=== PATIENT | female | born 1955 | race Caucasian/White ===

== ENCOUNTER → 2024-10-05 11:36 | Outpatient (BNV) | payer MEDICARE, SELFPAY | PROVIDERS: Visit Provider Radiology Diagnostic Radiology | DX: M47.812 Spondylosis without myelopathy or radiculopathy, cervical region (principal); M99.61 Osseous and subluxation stenosis of intervertebral foramina of cervical region; M43.12 Spondylolisthesis, cervical region; M50.321 Other cervical disc degeneration at C4-C5 level | CPT/HCPCS: 72156 ==

== ENCOUNTER 2024-10-05 12:49 | Outpatient (REF) | payer MEDICARE, SELFPAY ==
--- NOTE | ~2024-10-05 | MR_ITS ---
EXAMINATION: MR CERVICAL SPINE WITHOUT AND WITH CONTRAST CLINICAL INFORMATION: History of meningioma, weakness, numbness, paraparesis, ataxia. 69-year-old female. COMPARISON: None TECHNIQUE: Multiplanar multisequence MR imaging of the cervical spine was done prior to and after the administration 5.5 mL IV Gadavist. Examination was performed on a 1.5 Maday Siemens unit, using standard sequences. FINDINGS: CORONAL ALIGNMENT: -Mild levoconvex scoliosis, apex at C5. SAGITTAL ALIGNMENT: -Straightening of the upper cervical lordosis, with exaggeration of the lower cervical lordosis, apex at C6-7. -There is a 4 mm degenerative appearing anterolisthesis of C7 on T1. -Sagittal alignment is otherwise anatomic. CRANIOCERVICAL JUNCTION/C1-2 ARTICULATIONS: -Intact and aligned. VERTEBRAL BODIES/BONE MARROW: -No compression deformities. -No abnormal infiltrating bone marrow signal. -Severe edematous endplate changes and enhancement at C4-5. -Fatty type endplate changes are present at C6-7. DISCS: -Severe loss of disc height and signal is present C4-5, C5-6, C6-7, and C7-T1. -There is otherwise moderate loss of disc signal. CERVICAL CORD: -There is cord impingement at C4-5 as discussed below. There is notable increased cord T2 signal spanning the mid C4 to the mid C5 level. -There is subtle central increased cord signal extending from the C4-5 disc level, cephalad to the mid C2 level. -There is no abnormal cord or intramedullary or extra medullary enhancement. -There is no intra or extra medullary mass. PARAVERTEBRAL SOFT TISSUES: -Normal. No edema or enhancement identified. -The thyroid gland is obscured by a saturation band. VISUALIZED INTRACRANIAL STRUCTURES: -Within normal limits. -Mild linear enhancement abutting the dorsum sella and superior dorsal clivus is present, most likely a prominent greater petrosal sinus. En plaque type meningioma cannot be excluded. Correlate with old imaging. AXIAL DISC SPACE IMAGING: C2-C3: No disc pathology. Moderate left hypertrophic facet changes and bilateral uncinate spurs contribute to moderate to severe left neural foraminal stenosis. There is no central canal stenosis. C3-C4: There is a left lateral disc osteophytic protrusion, moderately narrowing the left lateral recess. There is mild central canal narrowing. Moderate left greater than right hypertrophic facet changes present, with moderate bilateral hypertrophic uncinate changes. The findings are contributing to severe bilateral neural foraminal encroachment. C4-C5: Diffuse dorsal disc osteophytic ridge complex is present, contiguous with prominent bilateral uncinate spurs. Moderate bilateral facet hypertrophic arthropathy. Posterior ligamentous thickening/infolding. There is severe central canal stenosis with cord impingement and signal abnormality. The central canal has been reduced to 6 mm in AP diameter (series 9, image 12). There is severe bilateral neural foraminal encroachment. C5-C6: There is a shallow diffuse disc osteophytic ridge complex, contiguous with prominent bilateral uncinate spurs. Moderate bilateral hypertrophic facet arthropathy. There is mild posterior ligamentous thickening/infolding. There is mild central canal stenosis without cord impingement. There is severe right greater than left neural foraminal encroachment. C6-C7: There is a shallow disc osteophytic ridge complex, contiguous with bilateral uncinate spurring. Mild bilateral facet hypertrophic arthropathy. Minimal posterior ligamentous thickening/infolding. There is mild central canal stenosis, mild left lateral recess stenosis, and severe bilateral neural foraminal impingement. C7-T1: Disc uncovering secondary to anterolisthesis. Moderate to severe disc degeneration. Mild to moderate bilateral uncinate and facet spurring present. There is mild central canal stenosis. There is severe bilateral neural foraminal impingement. MR/MR cervical spine wo/w con IMPRESSION: 1. Advanced cervical spondylosis. There is severe central canal stenosis with cord impingement at C5-6 with increased central cord signal at this level. See above for details. 2. Multilevel neural foraminal impingement, severe at C3-4 through C7-T1. 3. Severe edematous and enhancing endplate changes at C4-5. 4. No abnormal cord or extra medullary enhancement. 5. There is a 4 mm degenerative type anterolisthesis of C7 on T1. Electronically signed by: Ameya Gutierrez MD 10/05/2024 12:51 PM EDT
--- NOTE | ~2024-10-05 | XR_ITS ---
EXAMINATION: X-ray pre-MRI screening. CLINICAL INFORMATION: Concerning metallic foreign body. TECHNIQUE: AP and lateral views of the skull. COMPARISON: None FINDINGS: No metallic foreign body within the orbits or within the cranium. Poor pneumatization of the left frontal sinus. No gross Paranasal sinuses bony calvarium is intact. XR/XR pre mri screening IMPRESSION: No metallic foreign body. Negative exam. Electronically signed by: Trey Patten MD 10/05/2024 10:33 AM EDT
[2024-10-05] MEDS: gadobutroL 7.5 ML VIAL IVPUSH (12:14)
--- OUTSIDE RECORDS SUMMARY | 2024-10-05 12:51 | XMS_ITS | Data Portability ---
Author Organization [facility], [facility] Address [address] [place] [address] Care Team Providers Care Lump Roller Name Role Phone ZEE DAVIS Primary Care Provider [phone] CHRISTI GUERRIER Neurologist Assessment Encounter Date Assessment Date Assessment LastModified by Organization Details LastModified Time 12/19/2023 12/19/2023 We completed your Medicare Wellness exam today. This was an opportunity to assess your overall well being including your ability to care for yourself, your mobility, memory, mental health, as well as your safety. With advancing age, it is important to assign someone in your life as your Health Care Proxy (HCP). This person should know what is important to you and what your wishes are for medical procedures if you cannot communicate your wishes yourself (severe illness, unconsciousness) . We discussed having a completed Health Care Proxy form today. In addition, today we started a conversation about your End of Life wishes. These conversations will continue over the years. Please consider reading the book, Being Mortal by Renzo Llanos to help frame future conversations. We discussed the purpose of a MOLST form (Medical Orders for Life Sustaining Treatment) and completed this form if appropriate per your wishes. Vision and Hearing are senses that are critically important as we age. When impaired, they can contribute to memory loss, falls, and make it harder to drive, talk to family and friends, and engage in the world. Please get your vision checked yearly and your hearing checked when you start to notice hearing loss. We discussed approaches to lowering your risk of heart disease and stroke . Your blood pressure is higher than goal consider losing weight and lowering your salt intake. Your cholesterol is at goal. We discussed cancer screening you may need as well as vaccines to prevent infections. Colon Cancer : Your risk of colon cancer is . Due for colorectal screenin. If you are not planning to have a colonoscopy please screen with stool cards yearly. Breast Cancer : Breast Cancer Screening (mammography). Next mammogram due: 2024. Cervical Cancer Screening (pap test). Next pap due: not needed. . Influenza Vaccine : Flu shot yearly. Tetanus Vaccine : Every 10 years. Due: 2028. The following vaccines are available from your pharmacy: Pneumonia Vaccine : PCV20: once after age 65. Shingles Vaccine : 2 shots after age 50. Covid Vaccine : Make sure you have received the most up to date covid vaccine. Your personal health goal for the year is: [email or web address] Not available 12/19/2023 10:36:24 Plan of Treatment Reminders Order Date Submit Date Provider Last Modified By Organization Details Last Modified Time Details Appointments Follow Up, 2024 09:30A Jethro Davis NP Not available Not available Not available LAB Follow-Up 2024 08:10A M [facility] Lab Not available Not available Not available Wellness Visit 2024 09:45A M Zee Davis JUNIOR PHP DEVELOPER Not available Not available Not available Lab vitamin B12, serum 2024 025 [facility], [address] [place] [address], [id number], 09/03/2024 14:11:49 TSH, serum or plasma 2024 025 [facility], [address] [place] [address], [id number], 08/30/2024 15:20:50 folate, serum 2024 025 [facility], [address] [place] [address], [id number], 09/03/2024 14:11:50 CBC 2024 025 [facility], [address] [place] [address], [id number], 08/30/2024 12:44:50 BMP, serum or plasma 2024 025 [facility], [address] [place] [address], [address], 08/30/2024 14:18:37 HbA1c (hemoglob in A1c), blood 2024 025 [facility], [address] [place] [address], [address], 08/30/2024 14:27:07 fecal occult blood, immunoass ay, stool - Lab- Create annual order through [id number] order set. 2023 024 [facility], [address] [place] [address], [id number], 02/22/2024 11:05:42 fecal occult blood, immunoass ay, stool 2022 023 [facility], [address] [place] [address], [id number], 06/17/2022 10:54:49 Referral None recorded. Procedures nerve conductio n study/EMG , upper extremity (PROC) - bilateral u/e 2024 025 DELBERT Guerrier MD, [address] [place] [address], [address], 10/05/2024 11:07:38 Surgeries None recorded. Imaging MRI, brain, w/wo contrast - hoping for [place] location for MRI; previous brain tumor , now new neurologi jm symptoms. 2024 025 [facility] ([facility] [address] [place], [address], 10/01/2024 15:58:01 XR, cervical spine 2024 025 [facility] (Imaging), [address], [place], [address], 08/30/2024 10:36:43 MAMMO, screening , tomosynth esis, bilateral 2022 023 [facility] ([facility]), [address], [place], [address], 12/01/2022 09:19:14 Medication Orders None recorded. Patient TargetsNo targets recorded. Patient Instructions Encounter Date Encounter Id Patient Instructions Last Modified By Organization Details Last Modified Time 06/09/2022 [id number] CCM: The provide r and patient discussed the Chronic Care Management program, including the services provided, and any fees associated with them. [email or web address] Not available 06/09/2022 12:01:44 12/01/2022 [id number] advance directives: care instructions tfurcolo Not available 12/02/2022 08:32:25 preventing falls : care instructions tfurcolo Not available 12/02/2022 08:32:25 hearing loss: care instructions tfurcolo Not available 12/02/2022 08:32:25 well visit, over 65: care instructions tfurcolo Not available 12/02/2022 08:32:25 slightly elevate d BP today- with dysautonomia- no not recommend any BP meds- for risk of hypotension/fall tfurcolo Not available 12/02/2022 08:34:46 12/19/2023 [id number] CCM: The provide r and patient discussed the Chronic Care Management program, including the services provided, and any fees associated with them. [email or web address] Not available 12/19/2023 09:50:38 Reason for Referral None Reported. Results Created Date Observation Date Name Description Value Unit Range Abnormal Flag Note LastModifiedBy Organization Detail LastModifiedTime 06/15/1906/17/2022 IMMUN OCHEM ICAL FECAL OCCUL T BLOOD ifobt NEGATI VE negati ve Not Available [address], [address], 06/17/2022 10:54:49 02/21/20 24 02/22/2024 IMMUN OCHEM ICAL FECAL OCCUL T BLOOD ifobt NEGATI VE negati ve Not Available [address], [address], 02/22/2024 11:05:42 08/31/19 25 08/30/2024 CBC WBC 7.57 K/? ? ?L 3.98-1 0.04 Not Available [address], [address], 08/30/2024 12:44:50 08/31/19 25 08/30/2024 CBC RBC 4.49 M/? ? ?L 3.93-5 .22 Not Available [address], [address], 08/30/2024 12:44:50 08/31/19 25 08/30/2024 CBC HGB 13.8 g/dL 11.2-1 5.7 Not Available [address], [address], 08/30/2024 12:44:50 08/31/19 25 08/30/2024 CBC HCT 39.8 % 34.1-4 4.9 Not Available [address], [address], 08/30/2024 12:44:50 08/31/19 25 08/30/2024 CBC MCV 88.6 fL 79.4-9 4.8 Not Available [address], [address], 08/30/2024 12:44:50 08/31/19 25 08/30/2024 CBC MCH 30.7 pg 25.6-3 2.2 Not Available [address], [address], 08/30/2024 12:44:50 08/31/19 25 08/30/2024 CBC MCHC 34.7 g/dL 32.2-3 5.5 Not Available [address], [address], 08/30/2024 12:44:50 08/31/19 25 08/30/2024 CBC plt 430 K/? ? ?L 182-36 9 high Not Available [address], [address], 08/30/2024 12:44:50 08/31/19 25 08/30/2024 CBC MPV 9.7 fL 9.4-12 .3 Not Available [address], [address], 08/30/2024 12:44:50 08/31/19 25 08/30/2024 CBC neut% 66.5 % 34.0-7 1.1 Not Available [address], [address], 08/30/2024 12:44:50 08/31/19 25 08/30/2024 CBC neut# 5.04 1.56-6 .13 Not Available [address], [address], 08/30/2024 12:44:50 08/31/19 25 08/30/2024 CBC lymph % 24.2 % 19.3-5 1.7 Not Available [address], [address], 08/30/2024 12:44:50 08/31/19 25 08/30/2024 CBC lymph # 1.83 K/? ? ?L 1.18-3 .74 Not Available [address], [address], 08/30/2024 12:44:50 08/31/19 25 08/30/2024 CBC mono% 7.3 % 4.7-12 .5 Not Available [address], [address], 08/30/2024 12:44:50 08/31/19 25 08/30/2024 CBC mono# 0.55 0.24-0 .56 Not Available [address], [address], 08/30/2024 12:44:50 08/31/19 25 08/30/2024 CBC eo% 0.8 % 0.7-5. 8 Not Available [address], [address], 08/30/2024 12:44:50 08/31/19 25 08/30/2024 CBC eo# 0.06 0.04-0 .36 Not Available [address], [address], 08/30/2024 12:44:50 08/31/19 25 08/30/2024 CBC baso% 0.9 % 0.1-1. 2 Not Available [address], [address], 08/30/2024 12:44:50 08/31/19 25 08/30/2024 CBC baso# 0.07 0.00-0 .08 Not Available [address], [address], 08/30/2024 12:44:50 08/31/19 25 08/30/2024 CBC RDW-CV 13.1 % 11.7-1 4.4 Not Available [address], [address], 08/30/2024 12:44:50 08/31/19 25 08/30/2024 CBC Ig% 0.300 % 0.000- 1.500 Ig % >0.5 Indic ates possi ble Left Shift Not Available [address], [address], 08/30/2024 12:44:50 08/31/19 25 08/30/2024 CBC Ig# 0.020 0.000- 0.093 Not Available [address], [address], 08/30/2024 12:44:50 08/31/19 25 08/30/2024 CBC NRBC% 0.0 % 0.0-0. 2 Not Available [address], [address], 08/30/2024 12:44:50 08/31/19 25 08/30/2024 CBC NRBC# 0.000 0.000- 0.012 Not Available [address], [address], 08/30/2024 12:44:50 08/31/19 25 08/30/2024 BASIC METAB OLIC PANEL glucose 125 mg/dL 70-100 high Not Available [address], [address], 08/30/2024 14:18:37 08/31/19 25 08/30/2024 BASIC METAB OLIC PANEL BUN 18 mg/dL 7-18 Not Available [address], [address], 08/30/2024 14:18:37 08/31/19 25 08/30/2024 BASIC METAB OLIC PANEL creatinine 0.9 mg/dL 0.8-1. 3 Not Available [address], [address], 08/30/2024 14:18:37 08/31/19 25 08/30/2024 BASIC METAB OLIC PANEL B/C 20.0 ratio Not Available [address], [address], 08/30/2024 14:18:37 08/31/19 25 08/30/2024 BASIC METAB OLIC PANEL GFR >=60ML /MIN mL/mi n normal >=60m L/min - Kia l or midly reduc ed <60mL /min- Decre ased kidne y funct ion <15mL /min - Kidne y failu re [facility] calcu lates estim ated Glome rular Filtr ation Rate (eGFR ) using the Chron ic Kidne y Disea se Epide miolo gy Colla borat ion (CKD- EPI) Equat ion (Clayton r et. al 2020) as recom stefania d by the Natio nal Kidne y Found ation . eGFR is based on age, serum creat inine , and sex. CKD-E PI does not calcu late eGFR by race, does not apply to child susana (age <18 years ), and shoul d not be used in pregn lennie. Not Available [address], [address], 08/30/2024 14:18:37 08/31/19 25 08/30/2024 BASIC METAB OLIC PANEL sodium 142 mmol/ L 136-14 5 Not Available [address], [address], 08/30/2024 14:18:37 08/31/19 25 08/30/2024 BASIC METAB OLIC PANEL potassium 5.3 mmol/ L 3.5-5. 1 high Not Available [address], [address], 08/30/2024 14:18:37 08/31/19 25 08/30/2024 BASIC METAB OLIC PANEL chloride 103 mmol/ L 96-107 Not Available [address], [address], 08/30/2024 14:18:37 08/31/19 25 08/30/2024 BASIC METAB OLIC PANEL anion gap 9.9 5.0-15 .0 Not Available [address], [address], 08/30/2024 14:18:37 08/31/19 25 08/30/2024 BASIC METAB OLIC PANEL CO2 29 mmol/ L 21-32 Not Available [address], [address], 08/30/2024 14:18:37 08/31/19 25 08/30/2024 BASIC METAB OLIC PANEL calcium 10.1 mg/dL 8.5-10 .3 Not Available [address], [address], 08/30/2024 14:18:37 08/31/19 25 08/30/2024 HGB A1C hemoglobin A1C 5.7 % 4.8-6. 0 Goal: <7% in Patie nts with Diabe tremaine An A1c betwe en 5.7-6 .4% is ident ified as pre-d iabet es and sugge sts risk for progr essio n to diabe tremaine Two a1c value s of 6.5% or highe r is consi stent with a diagn osis of diabe tremaine but may need furth er confi rmati on Not Available [address], [address], 08/30/2024 14:27:07 08/31/19 25 08/30/2024 HGB A1C estimated average glucose 116.9 mg/dL Not Available [address], [address], 08/30/2024 14:27:07 08/31/19 25 08/30/2024 LIPID PANEL cholesterol 255 mg/dL <200 mg/dl Jenny able 200-2 39 mg/dl Borde rline High >240 mg/dl High Not Available [address], [address], 08/30/2024 14:35:55 08/31/19 25 08/30/2024 LIPID PANEL triglyceride s 82 mg/dL <150 mg/dL Kia l 150-1 99 mg/dL Borde rline High 200-4 99 mg/dL High >500 mg/dL Very High Not Available [address], [address], 08/30/2024 14:35:55 08/31/19 25 08/30/2024 LIPID PANEL direct HDL 78 mg/dL <40 mg/dl - Major Risk for CHD >60 mg/dl - Negat gabriella Risk for CHD Not Available [address], [address], 08/30/2024 14:35:55 08/31/19 25 08/30/2024 LDL - CALCU LATED LDL - calculated 161 RISK CATEG ORY LDL GOAL _ CHD or CHD Risk Equiv alent s <100 mg/dl (10-y ear risk >20%) 2+ Risk Facto rs <130 mg/dl (10-y ear risk <= 20%) 0-1 Risk Facto r? <160 mg/dl ? Almos t all peopl e with 0-1 risk facto r have a 10 year risk <10%, thus 10 year risk asses ment in peopl e with 0-1 risk facto r is not marquita castillo. Not Available [address], [address], 08/30/2024 14:35:57 08/31/19 25 08/30/2024 TSH TSH 1.76 uIU/m L 0.50-6 .00 The Ameri can Colle ge of Endoc rinol ogy and Ameri can Thyro id Assoc iatio n recom mend goal TSH value s betwe en 0.4-4 .0 mIU/m L. Not Available [address], [address], 08/30/2024 15:20:50 12/02/19 23 12/01/2022 MAMMO , scree hai, tomos ynthe sis, bilat eral MAMMO, SCREEN , NIKITA, BILAT: 023. BI-RAD S: 1 CLINIC AL: 67-yea r old Female for Bilate ral Screen ing Mammog bre. No person al or first- degree family histor y of breast cancer . PRIOR EXAMS: Review ed previo us images from 2019. MAMMOG KIKI TECHNI QUE: 3D mammog kiki (tomos ynthes is) and 2D mammog kiki (C-vie w) images are genera yanna. Images review ed with a CAD system . DENSIT Y c. Hetero geneou sly dense, which may obscur e small masses . MAMMOG KIKI FINDIN GS Bilate ral: No suspic ious mass, asymme try, microc alcifi cation , or other abnorm ality seen. CONCLU SCOTT * No eviden ce of malign lennie. RECOMM ENDATI ONS Bilate ral * Annual screen ing mammog kiki. OVERAL L ASSESS MENT CATEGO RY BI-RAD S-1: Negati ve. The [employer] an [employer] e [employer] o[employer] recomm ends annual screen ing mammog kiki beginn ing at age 40 for women with averag e risk of breast cancer . ELECTR ONICAL LY SIGNED : Kwesi Borden M.D. on 2022 at 09:18: 36 AM Andrés walsh Physic den[facility] [address] [place], [address], 12/01/2022 09:30:43 08/31/19 25 08/30/2024 XR, cervi jm spine CLINIC AL HISTOR Y: Neck pain. TECHNI QUE: AP, latera l and odonto id views of the cervic al spine obtain ed. Bilate ral obliqu e views added. COMPAR SAMMY: None. FINDIN GS: Verteb ral body alignm ent is within physio logic limits . There is disc space narrow ing and endpla te spurri ng C4-5, C5-6, C6-7. There is forami nal narrow ing at C5-6 and C6-7 due to ledger poster ior endpla te spurri ng bilate rally. There is uncina te proces s hypert rophic change C4-5 throug h C6-7.. There is no fractu re. The prever tebral soft tissue s are unrema rkable . IMPRES SCOTT: 1. Modera tely severe degene rative disc and joint diseas e C4-5 throug h C6 Darinel bilate rally. 2. No acute bony abnorm ality. Andrés walsh Physic den: Kwesi Borden [address] (Imaging) [address] [place], [address], 09/03/2024 11:00:34 10/06/19 25 10/04/2024 nerve condu ction study /EMG, upper extre mity (PROC ) No observ ation record ed. [facility] [address] [place], [address], 10/05/2024 11:46:11 Result Notes None recorded. Problems Name Problem SNOMED Code Status Onset Date Resolution Date Notes Provider Name and Address Organization Details Recorded Time Chronic contact dermatit is 87446725 Active Zee Orozco MD [address] [place] [address], [address] [place] [address] , [facility], [place] 4 09:43:09 History of cerebral meningio ia 13999134563 4104 Active 2022 surgical ly excised 1994 Kell Quispe D.O. 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 extensiv e DVT post op 1994 meningio ma removal Kell Jose Enrique D.O. [address] [place], [place], [address] [place] [address] , [facility], [place] 3 13:03:48 Autonomi c dysrefle sae 567308580 Active uses a wheelcha ir that reclines so that she can keep her legs up. thigh high compress ion sleeves for legs Kell Quispe D.O. 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 Procedures Surgical History Date Name Laterality Status Provider Name and Address Organization Details Recorded Time 12/19/19 24 Medicare Wellness Visit completed RITO Farnsworth [facility] 12/19/2023 09:44:41 12/02/19 23 Medicare Wellness Visit completed [place] Jean MA [facility] 12/01/2022 10:04:10 09/20/19 19 Medicare Annual Wellness Visit completed Meredith Pressley MA [facility] 09/19/2018 10:39:40 03/07/20 14 Medicare Wellness Visit completed Cortez Lance LPN [facility] 03/07/2014 08:54:16 05/16/18 95 Other (specify) completed Not Available Pending sale to [facility] 03/16 06:05:52 05/16/18 86 Appendectomy completed Not Available Pending sale to [facility] 011 06:05:52 05/16/18 79 Tubal Ligation completed Not Available Pending sale to [facility] 04/01 06:05:52 insertion of inferior vena caval filter completed Kell Quispe D.O. [address] [place] [address], [id number], [facility], [place] 06/09/2022 13:04:34 Imaging Results Imaging Date Name Status LastModified by Organiz ation Details LastModified Time 12/01/2022 MAMMO, screening, tomosynthesis, bilateral completed [facility] (Imaging) [address] [place], [address], 12/01/2022 09:30:43 08/30/2024 XR, cervical spine completed [address] (Imaging) [address] [place], [address], 09/03/2024 11:00:34 10/04/2024 nerve conduction study/EMG, upper extremity (PROC) completed [facility] [address] [place], [address], 10/05/2024 11:46:11 Procedure Notes None recorded. Medical Equipment None Reported. Allergies No known drug allergies Medications Name Sig Start Date Stop Date Status Note LastModified by Organization Details LastModified Time Vitamin E-400 268 mg (400 unit) capsule Take 1 capsule every day by oral route for 30 days. 03/07 completed Not Available Not Available Not Available econazole nitrate 1 % topical cream Apply to foot rash daily 08/14 completed Not Available Not Available Not Available betametha sone dipropion ate 0.05 % topical cream Apply to affected area bid for up to 2 weeks 08/27 completed Not Available Not Available Not Available Ecotrin 325 mg tablet,en teric coated Take 1 tablet every day by oral route. 12/18 completed Not Available Not Available Not Available Vitamin C 250 mg tablet Take 1 tablet every day by oral route for 30 days. 2010 active Not Available Not Available Not Avai lable Vitamin C 500 mg capsule,e xtended release NOW 250mg 09/10 completed Not Available Not Available Not Available Co Q-10 100 mg capsule Take 1 capsule every day by oral route for 30 days. 12/18 completed Not Available Not Available Not Available multivita min w/Iron NO vit.K 03/07 completed 1 po qd Not Available Not Available Not Available Asprin Ec Low Dose active Not Available Not Available Not Available shira.s tocking,t high,reg, med 3-40mmHg active Orthotic s and Prosthet ics. Not Available Not Available Not Available Afluria Quad 7127-6038 (PF) 60 mcg (15 mcg x 4)/0.5 mL IM syringe inject 0.5 millilit er intramus cularly 09/19 completed Not Available Not Available Not Available Vitals Date Recorded Body weight Oxygen saturation Oxygen saturation in Arterial blood by Pulse oximetry Heart rate Systolic blood pressure Diastolic blood pressure Provider Name and Address Organization Details Last Updated DateTime 3 69492.7 5 g 98 % 98 % 105 /min 152 mm[Hg] 90 mm[Hg] RITO Farnsworth [facility] 12:09:59 Date Recorded Body weight Heart rate Systolic blood pressure Diastolic blood pressure Provider Name and Address Organization Details Last Updated DateTime 12/01/2022 75219.38 g 75 /min 142 mm[Hg] 84 mm[Hg] [place] Jean [facility] 12/01/2022 10:08:50 Date Recorded Body weight Body mass index (BMI) Body height Oxygen saturation Oxygen saturation in Arterial blood by Pulse oximetry Heart rate Systolic blood pressure Diastolic blood pressure Provider Name and Address Organization Details Last Updated DateTime 4 07260.2 3 g 20.8 kg/m2 166.37 cm 98 % 98 % 113 /min 154 mm[Hg] 93 mm[Hg] Mago Chan [facility] 4 09:52:53 Date Recorded Heart rate Systolic blood pressure Diastolic blood pressure Provider Name and Address Organization Details Last Updated DateTime 12/23/2023 71 /min 111 mm[Hg] 66 mm[Hg] Kamille Barba RN [facility] 01/03/2024 09:27:51 Date Recorded Heart rate Systolic blood pressure Diastolic blood pressure Provider Name and Address Organization Details Last Updated DateTime 01/02/2024 70 /min 123 mm[Hg] 75 mm[Hg] Kamille Barba RN [facility] 01/03/2024 09:28:45 Date Recorded Body height Body mass index (BMI) Body weight Heart rate Oxygen saturation Oxygen saturation in Arterial blood by Pulse oximetry Systolic blood pressure Diastolic blood pressure Provider Name and Address Organization Details Last Updated DateTime 5 166.37 cm 21 kg/m2 59893.8 2 g 83 /min 98 % 98 % 128 mm[Hg] 86 mm[Hg] Hortencia Blair [facility] 5 12:15:49 Date Recorded Body height Body mass index (BMI) Body weight Heart rate Oxygen saturation Oxygen saturation in Arterial blood by Pulse oximetry Systolic blood pressure Diastolic blood pressure Provider Name and Address Organization Details Last Updated DateTime 5 166.37 cm 21 kg/m2 85213.8 2 g 94 /min 97 % 97 % 130 mm[Hg] 82 mm[Hg] Fior Lomeli MA [facility] 5 10:00:33 Social History Question Answer Notes LastModified by Organizat ion Details LastModified Time Tobacco Smoking Status Never Smoker checked kb 8-5-244/16/25M Vc 09/12/25mm Fior Lomeli MA [facility] 09/12/2024 09:55:46 Do You Have An Advance Directive? Yes ---Vinod an Information not available 04/21/2009 What Is Your Level Of Caffeine Consumption? Moderate 2 Cups Information not available 08/09/2012 How Much Tobacco Do You Chew? None [email or web address] Information not available 04/01/2011 What Type Of Diet Are You Following? REGULAR [email or web address] Information not available 04/01/2011 Which Illicit Or Recreational Drugs Have You Used? None Information not available 08/09/2012 Education 2 Year College [email or web address] Information not available 04/01/2011 How Many Days In The Past Year Have You Had A Heavy Drinking Consumption (4+ Female, 5+ Male)? 0 Information not available 08/09/2012 Are There Any Guns Present In Your Home? No [email or web address] Information not available 04/01/2011 Live Alone Or With Others? With Others [email or web address] Information not available 04/01/2011 Patient Has Health Care Proxy Signed And In Chart Yes [email or web address]_ [email or web address] Information not available 04/01/2011 CCM Consent Discussion 12/19/2023 [email or web address] Information not available 12/20/2023 Marital Status Vinod. chapo Informatio n not available 09/10/2010 Mosquito Repellent Used Routinely Yes [email or web address] Information not available 04/01/2011 What Was The Date Of Your Most Recent Tobacco Screening? 09/12/2024 [email or web address] Information not available 09/12/2024 How Many Children Do You Have? 3 1 Daughter MVA- Have A STEM Scholarship In Her Name [email or web address] Information not available 06/09/2022 What Is Your Relationship Status? Domestic Partner 30 Years With Vinod (who Is Her First Cousin)- Did Not Have Children With Him [email or web address] Information not available 06/09/2022 Seat Belts Used Routinely Yes [email or web address] Information not available 04/01/2011 Are You Sexually Active? Yes Information not available 08/09/2012 Smoke Alarm In Home Yes [email or web address] Information not available 04/01/2011 General Stress Level Low To Low Information not available 08/09/2012 Do You Use Sunscreen Routinely? Yes [email or web address] Information not available 04/01/2011 Sex: Female Functional Status Question Answer Note LastModified by Organizat ion Details LastModified Time What is your level of alcohol consumption? None stopped using alcohol checked kb 8--24 [email or web address] Information not available 12/19/2023 Mental Status None recorded. Family History Relationship Description Onset Age of this Age Resolved Age Notes LastModified by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
== END 2024-10-05 12:50 | disposition home or self-care (01) ==
LOC: HO.MRI 12:49
PROVIDERS: Visit Provider Psychiatry & Neurology Neurology
DX: M62.81 Muscle weakness (generalized) (principal); R20.0 Anesthesia of skin
CPT/HCPCS: 72156; A9585